=== PATIENT | female | born 1990 | race African-American/Black ===

== ENCOUNTER 2017-03-28 20:03 | Emergency (ER) | payer OTHER ==
[~2017-03-28] VITALS: Ht 165.1 cm; Wt 68.0 kg
[2017-03-28] MEDS ORDERED: NOHOMEMEDICATIONS (20:12)
[2017-03-28] MEDS ORDERED: BACTRIM DS TAB1 EACH PO ×2 (21:16→21:30)
[2017-03-28 21:26] VITALS: BP 119/77
== END 2017-03-28 21:25 | disposition home or self-care (01) ==
LOC: ER 20:03
DX: N75.1 Abscess of Bartholin's gland (principal); Z23 Encounter for immunization; J45.909 Unspecified asthma, uncomplicated